=== PATIENT | female | born 1995 | race Caucasian/White ===

== ENCOUNTER 2017-01-19 13:05 | Day surgery (SDC) | payer OTHER ==
[~2017-01-19] VITALS: Ht 160 cm; Wt 91.0 kg
[~2017-01-19 13:05] MED LIST: Lactated Ringer's 1,000 ML IV ONE; METO10TA3 PO; OMEP40CA36 PO; RANI300C PO; Sodium Chloride LOK Flush 10 mL Syringe IV PRN; TAMO20TA4 PO; fentaNYL-PF 50 mCg/mL 2 mL Inj IVPUSH PRN
[2017-01-19 13:49] VITALS: BP 121/88; PULSE 67; RESP 16; O2SAT 97
[2017-01-19] MEDS ORDERED: 0.9% Sodium Chloride 1,000 ML IV ONE (14:52)
[2017-01-19 15:03] VITALS: BP 109/64; PULSE 68; RESP 14; O2SAT 95
[2017-01-19 15:15] VITALS: BP 121/71; PULSE 76; RESP 14; O2SAT 100
[2017-01-19 15:18] VITALS: BP 115/75; PULSE 62; RESP 14; O2SAT 100
--- NOTE | 2017-01-19 15:42 | ENDO ---
[address] [address] ENDOSCOPY PROCEDURE PATIENT: RASHEEDA PERES : 1995 MR#: [id number] ADMIT: 01/19/2017 JOB ID: [id number] DATE OF SERVICE: 01/19/2017 TYPE OF OPERATION: Esophagogastroduodenoscopy, biopsy, and flexible sigmoidoscopy. PREOPERATIVE DIAGNOSIS(ES): History of familial adenoma polyposis. POSTOPERATIVE DIAGNOSIS(ES): 1. Multiple polyps seen in the stomach on retroflexion in the cardia, largest size 3 mm, status post biopsy. 2. No duodenal polyps were seen. 3. Status post ileoanal pull-through was seen without any colon tissue within the flexible sigmoidoscopy. ANESTHESIA: Fentanyl 150 mcg and Versed 7 mg IV administered. COMPLICATIONS: None. BLOOD LOSS: Minimal. DESCRIPTION OF PROCEDURE: After risks and benefits explained to patient, informed consent was obtained. After anesthesia administered, upper endoscope was then inserted in the mouth, intubated into esophagus, stomach, second portion of duodenum. Mucosa carefully examined. After procedure was done, the scope withdrawn, procedure terminated. The upper endoscope was then inserted in the rectum to the small bowel and mucosa carefully examined. Prep of the patient was excellent. After the procedure was done, the scope withdrawn, procedure terminated. FINDINGS: Upon inspection of the esophagus, esophagus was normal without masses, ulcers, or lesions. Z-line located at 35 cm from incisors. Upon entering stomach, the antrum and body of the stomach appeared normal without masses, ulcers, lesions. On retroflexion, there were multiple polyps seen in the cardia, largest size 3 mm, that were scattered throughout the entire cardia on retroflexion. No hiatal hernia was seen. Biopsies were taken at the polyp site. The first and second portion of duodenum appeared normal without any masses that were seen. The scope was then inserted in the rectum and it was seen that the patient had a prior surgery in which her entire colon was removed. Upon entering through the anus, there appeared to be a small bowel that was seen. There was no colon that was seen at all. The scope was advanced about 10-15 cm from the anus and small bowel. IMPRESSIONS: 1. Multiple gastric polyps seen on retroflexion. Largest size 3 mm, status post biopsy. 2. Status post ileoanal anastomosis pull-through was seen without any colonic tissue on flexible sigmoidoscopy. RECOMMENDATIONS: Await pathology results. If the gastric polyps show evidence of high-grade dysplasia or malignancy, then would recommend surgery. Otherwise, would recommend a repeat upper endoscopy in one year. Follow up in GI clinic as needed.
--- NOTE | 2017-01-22 14:58 | PATH ---
SURGICAL PATHOLOGY Attending Physician:Oscar Watts MD CASE STATUS: Signed Out PATIENT NAME: RASHEEDA PERES PID: [id number] : 1995 DATE COLLECTED:01/19/2017 00:00 SPECIMEN: Stomach, Polyp, Biopsy CLINICAL HISTORY: 1). GASTRIC CARDIA POLYPS FINAL DIAGNOSIS: 1.SPECIMEN DESIGNATED GASTRIC CARDIA POLYPS: FRAGMENTS OF GASTRIC FUNDIC MUCOSA WITH MINIMAL CHRONIC INFLAMMATION. Negative for evidence of Helicobacter on H&E stain. Negative for intestinal metaplasia. Negative for dysplasia and malignancy. ICD10 K29.70 GROSS DESCRIPTION: The specimen is received in formalin, labeled with the patient's name, sublabeled as gastric cardia polyps, and consists of multiple fragments of james-white glistening rubbery semitranslucent tissue (0.6 x 0.4 x 0.1 cm in aggregate). Section code: (A) tissue. Specimen entirely submitted. 01/21/17 JM MICRO DESCRIPTION: See diagnosis. ICD-9 CODES: CPT CODES: 1: 58854 Electronically Signed Out Hayden Yang MD [facility] [address], [place] [address] Technical component performed at [facility], [address] [place] [address] Ave[address], [place], [address]
== END 2017-01-19 23:59 | disposition home or self-care (01) ==
LOC: END 13:05
PROVIDERS: ATTEND Internal Medicine Gastroenterology
DX: K62.5 Hemorrhage of anus and rectum (principal); K31.7 Polyp of stomach and duodenum; Z86.010 Personal history of colon polyps; Z90.49 Acquired absence of other specified parts of digestive tract; Z83.71 Family history of colonic polyps; Z98.0 Intestinal bypass and anastomosis status
CPT/HCPCS: 43239; 45330; G0500; J2250; J3010; J7030